=== PATIENT | female | born 1955 | race Caucasian/White ===

== ENCOUNTER → 2016-07-22 | Outpatient (CLI) | payer MEDICARE, MEDICAID ==
[~2016-07-22] MED LIST: HYDR-3816 PO
== END ==
LOC: CARD 11:19
PROVIDERS: ATTEND Nurse Practitioner Community Health
DX: Z51.81 Encounter for therapeutic drug level monitoring (principal); Z79.899 Other long term (current) drug therapy
CPT/HCPCS: 93005